=== PATIENT | male | born 1980 | race Caucasian/White ===

== ENCOUNTER 2016-05-25 09:02 | Emergency (ER) | payer SELFPAY ==
[~2016-05-25] VITALS: Ht 177.8 cm; Wt 72.1 kg
[2016-05-25 11:09] VITALS: BP 134/87
== END 2016-05-25 11:09 | disposition home or self-care (01) ==
LOC: ED 09:02
DX: L03.116 Cellulitis of left lower limb (principal); S61.201A Unspecified open wound of left index finger without damage to nail, initial encounter; X58.XXXA Exposure to other specified factors, initial encounter; Y93.89 Activity, other specified; Y92.89 Other specified places as the place of occurrence of the external cause; Y99.8 Other external cause status

== ENCOUNTER 2016-05-29 10:24 | Emergency (ER) | payer SELFPAY ==
[2016-05-29 12:47] VITALS: BP 117/79
== END 2016-05-29 12:47 | disposition home or self-care (01) ==
LOC: ED 10:24
DX: Z48.00 Encounter for change or removal of nonsurgical wound dressing (principal)